=== PATIENT | female | born 1995 | race Caucasian/White ===

== ENCOUNTER 2023-08-02 00:28 | Emergency (ER) | payer OTHER ==
[~2023-08-02] VITALS: Ht 157.5 cm; Wt 108.9 kg
[2023-08-02 00:43] VITALS: BP_SYST 125; BP_SYST 138; BP_DIAS 74; BP_DIAS 87; PULSE 88; RESP 16; TEMP 97.4; O2SAT 100
[2023-08-02 02:15] VITALS: BP 125/87; PULSE 88; RESP 16; TEMP 97.4; O2SAT 100
== END 2023-08-02 02:10 ==
LOC: MED 00:28
DX: S62.346A Nondisplaced fracture of base of fifth metacarpal bone, right hand, initial encounter for closed fracture (principal); S33.5XXA Sprain of ligaments of lumbar spine, initial encounter; S80.02XA Contusion of left knee, initial encounter; Z90.49 Acquired absence of other specified parts of digestive tract; V49.88XA Car occupant (driver) (passenger) injured in other specified transport accidents, initial encounter; Y93.89 Activity, other specified; Y92.89 Other specified places as the place of occurrence of the external cause; Y99.8 Other external cause status
CPT/HCPCS: 72072; 73110; 73562; 99284